=== PATIENT | male | born 1990 | race American Indian/Alaskan Native ===

== ENCOUNTER 2016-12-29 11:54 | Emergency (ER) | payer SELFPAY ==
[2016-12-29 13:30] VITALS: BP 142/94
== END 2016-12-29 17:00 | disposition left against medical advice (07) ==
LOC: ED 11:54
DX: H57.8 Other specified disorders of eye and adnexa (principal); Z53.21 Procedure and treatment not carried out due to patient leaving prior to being seen by health care provider